=== PATIENT | female | born 1980 | race Caucasian/White ===

== ENCOUNTER 2016-09-16 16:42 | Emergency (ER) | payer MEDICAID, OTHER ==
[2016-09-16 16:57] VITALS: BP 131/81
--- NOTE | 2016-09-16 17:06 | UC ---
Hand/Wrist HPI - HPI Summary HPI Summary: pain in right wrist traveling from thumb up side of forearm---began after gardening a few days ago---hurts to move touch, difficult picking up things - History Of Current Complaint Chief Complaint: UCUpperExtremity Stated Complaint: RIGHT WRIST/HAND INJURY Time Seen by Provider: 09/16/16 16:57 Hx Obtained From: Patient Hx Last Menstrual Period: 09/14/16 ?: No Mechanism Of Injury: repeative use Onset/Duration: Sudden Onset, Lasting Days, Still Present Severity Initially: Moderate Severity Currently: Moderate Pain Intensity: 6 Pain Scale Used: 0-10 Numeric Character Of Pain: Aching, Throbbing Aggravating Factor(s): Movement, Lifting Alleviating: Nothing Associated Signs And Symptoms: Positive: Negative Related History: Dominant Hand Right - Allergies/Home Medications Allergies/Adverse Reactions: Allergies Allergy/AdvReac Type Severity Reaction Status Date / Time No Known Allergies Allergy Verified 09/16/16 16:57 Home Medications: Home Medications Lisdexamfetamine(NF) [Vyvanse(NF)] 40 mg PO DAILY 09/16/16 [History Confirmed ] Naltrexone (NF) 50 mg PO DAILY 09/16/16 [History Confirmed 09/16/16] lamoTRIgine TAB(*) [Lamictal TAB(*)] 75 mg PO BEDTIME 09/16/16 [History Confirmed 09/16/16] traZODone TAB* [Desyrel TAB*] 100 mg PO BEDTIME 09/16/16 [History Confirmed 06/28] PMH/Surg Hx/FS Hx/Imm Hx Previously Healthy: No Psychological History: Anxiety, Depression Other History Of: Negative For: Anticoagulant Therapy - Surgical History Surgical History: Yes Surgery Procedure, Year, and Place: Appendectomy, 2004, [facility] [place]. Tubal Ligation, 2007, [facility] [place]. Left Shoulder Rotator Cuff/Calcium Deposits/Bone Spurs, 2011, [facility] [place] - Family History Known Family History: Positive: None - Social History Occupation: Unemployed Lives: With Family Alcohol Use: Occasionally Substance Use Type: None Smoking Status (MU): Heavy Every Day Tobacco Smoker Type: Cigarettes Amount Used/How Often: 1/2 ppd Have You Smoked in the Last Year: Yes Household Exposure Type: Cigarettes Review of Systems Constitutional: Negative Skin: Negative Eyes: Negative ENT: Negative Respiratory: Negative Cardiovascular: Negative Gastrointestinal: Negative Genitourinary: Negative Motor: Negative Neurovascular: Negative Musculoskeletal: Arthralgia - right thumb and raial pain Neurological: Negative Psychological: Negative All Other Systems Reviewed And Are Negative: Yes Physical Exam Triage Information Reviewed: Yes Appearance: Well-Appearing, No Pain Distress, Well-Nourished Vital Signs: Initial Vital Signs Temp 99 F 09/16/16 16:53 Pulse 96 09/16/16 16:53 Resp 14 09/16/16 16:53 BP 131/81 09/16/16 16:53 Pulse Ox 98 09/16/16 16:53 Vital Signs Reviewed: Yes Eye Exam: Normal Eyes: Positive: Conjunctiva Clear ENT Exam: Normal ENT: Positive: Normal ENT inspection, Hearing grossly normal, Pharynx normal. Negative: Nasal congestion, Nasal drainage, Trismus, Muffled/hoarse voice Dental Exam: Normal Neck exam: Normal Neck: Positive: Supple, Nontender, No Lymphadenopathy Respiratory Exam: Normal Respiratory: Positive: Chest non-tender, No respiratory distress, No accessory muscle use Cardiovascular Exam: Normal Cardiovascular: Positive: RRR, Pulses Normal, Brisk Capillary Refill Musculoskeletal Exam: Normal Musculoskeletal: Positive: Strength Intact, ROM Intact, No Edema Neurological Exam: Normal Neurological: Positive: Alert, Muscle Tone Normal Psychological Exam: Normal Psychological: Positive: Normal Response To Family, Age Appropriate Behavior Skin Exam: Normal Hand/Wrist Course/Dx - Course Course Of Treatment: thumb spica, rice, ibuprofen, follow with ortho prn - Differential Dx/Diagnosis Differential Diagnosis/HQI/PQRI: Cellulitis, Contusion, Fracture, Sprain, Strain , Tendonitis Provider Diagnoses: Tendonitis right wrist Discharge - Discharge Plan Condition: Stable Disposition: HOME Prescriptions: Ibuprofen TAB* [Motrin TAB* 600 MG] 600 mg PO Q6H PRN #40 tab PRN Reason: pain Patient Education Materials: Ibuprofen (By mouth), Tendinitis (ED), RICE Therapy (ED) Referrals: Donis Lowry MD [Medical Doctor] - 1 Week
== END 2016-09-16 17:20 | disposition home or self-care (01) ==
LOC: UCCORT 16:42
DX: M77.9 Enthesopathy, unspecified (principal); F41.9 Anxiety disorder, unspecified; F32.9 Major depressive disorder, single episode, unspecified; F17.210 Nicotine dependence, cigarettes, uncomplicated
CPT/HCPCS: 99213; G0463

== ENCOUNTER 2018-08-02 11:08 | Emergency (ER) | payer OTHER ==
[2018-08-02] MEDS ORDERED: Ondansetron INJ* 2 MG/ML VIAL IV ONE (11:51)
[2018-08-02] MEDS ORDERED: Thiamine TAB* 100 MG TAB PO ONE (11:51)
[2018-08-02] MEDS ORDERED: NS 0.9% 1000 ML** 1,000 ML IV ONE (11:51)
[2018-08-02] MEDS ORDERED: Folic Acid TAB* 1 MG PO ONE (11:51)
[2018-08-02 12:13] LABS: ABS Lymphocytes 0.8 10^3/ul (1.0-4.8); ABS Monocytes 0.3 10^3/ul (0-0.8); ABS Neutrophils 3.4 10^3/ul (1.5-7.7); Eosinophil % 0.3 %; Hematocrit 35 % (35-47); Hemoglobin 12.1 g/dL (12.0-16.0); Mean Corpuscular HGB Conc 35 g/dL (31-36); Mean Corpuscular Hemoglobin 34 pg (27-31); Mean Corpuscular Volume 96 fL (80-97); Mean Platelet Volume 7.3 fL (7.4-10.4); Nucleated Red Blood Cells % 0.1; Platelet Count 158 10^3/uL (150-450); Red Cell Distribution Width 14 % (10-15); White Blood Count 4.6 10^3/uL (3.5-10.8)
[2018-08-02 12:16] LABS: Urine Appearance Cloudy; Urine Bilirubin Negative (Negative); Urine Blood Negative (Negative); Urine Color Yellow; Urine Glucose Negative (Negative); Urine Ketones Trace (Negative); Urine Nitrite Negative (Negative); Urine Protein Negative (Negative); Urine Urobilinogen Negative (Negative)
[2018-08-02 12:28] LABS: ALT 65 U/L (7-52); AST 65 U/L (13-39); Albumin 4.1 g/dL (3.2-5.2); Albumin/Globulin Ratio 1.5 (1-3); Alkaline Phosphatase 84 U/L (34-104); Anion Gap 12 mmol/L (2-11); BUN/Creatinine Ratio 8.5 (8-20); Blood Urea Nitrogen 6 mg/dL (6-24); CO2 Carbon Dioxide 23 mmol/L (22-32); Calcium 8.8 mg/dL (8.6-10.3); Chloride 104 mmol/L (101-111); EGFR African American 110.9 (>60); EGFR Non-African American 91.6 (>60); Globulin 2.8 g/dL (2-4); Glucose 80 mg/dL (70-100); Potassium 3.6 mmol/L (3.5-5.0); Sodium 139 mmol/L (135-145); Total Protein 6.9 g/dL (6.4-8.9)
[2018-08-02 12:39] LABS: Urine Benzodiazepine Screen None Detected (None Detect); Urine Opiates Screen None Detected (None Detect)
[2018-08-02 12:39] LABS: Acetaminophen < 15 mcg/mL; Alcohol 46 mg/dL (<10); Salicylate < 2.50 mg/dL (<30)
--- NOTE | 2018-08-02 12:50 | ED ---
Substance Abuse/Use - HPI Summary HPI Summary: This patient is a 38 year old F presenting to [facility] accompanied by friend with request for alcohol detox today after experiencing alcohol withdrawal symptoms. Pt reports her last drink was around 0200, and according to triage she drank about a pint of vodka. She reports that her hands cramped up, her arm was numb up to the elbow, her right foot was numb, and she experienced shakiness. Friend reported pt vomited throughout the night. Pt also reports she ingested cocaine last night. In triage it is reported that she smoked marijuana the morning of . Current everyday smoker. - History Of Current Complaint Chief Complaint: EDDetoxRequest Stated Complaint: REQUESTED DETOX PER PT Time Seen by Provider: 08/02/18 11:38 Hx Obtained From: Patient Hx Last Menstrual Period: 09/14/16 Onset/Duration of Drug/ETOH Abuse: Hours - Last alcoholic drink was at 0200. Ingestion History: Type/Name Of Drug - Alcohol, Cocaine, Marijuana Timing Of Abuse: Daily - Chronic ETOH Abuse, Intermittent - Cocaine, night of Marijuana, morning of 08/02/18 Severity Initially: Mild Severity Currently: Moderate Aggravating Factor(s): Other - withdrawal from EtOH Alleviating Factor(s): Nothing Associated Signs And Symptoms: Tremulous, Nausea, Vomiting, Other: - Positive: Numbness in arm up to elbows, right foot numbness Related Hx: Drug/Alcohol Last Used @ - Alcohol - 0200 on 08/02/18; Cocaine - night of 08/01/18, Marijuana - morning of 08/02/18 - Allergies/Home Medications Allergies/Adverse Reactions: Allergies Allergy/AdvReac Type Severity Reaction Status Date / Time No Known Allergies Allergy Verified 09/16/16 16:57 Home Medications: Home Medications NK [No Home Medications Reported] 08/02/18 [History Confirmed 08/02/18] PMH/Surg Hx/FS Hx/Imm Hx Endocrine/Hematology History: Denies: Hx Anticoagulant Therapy, Hx Diabetes, Hx Thyroid Disease Cardiovascular History: Denies: Hx Hypertension Respiratory History: Denies: Hx Asthma, Hx Chronic Obstructive Pulmonary Disease (COPD) GI History: Denies: Hx Ulcer Psychiatric History: Reports: Hx Substance Abuse - Surgical History Surgery Procedure, Year, and Place: Appendectomy, 2004, [facility]. Tubal Ligation, 2007, [facility]. Left Shoulder Rotator Cuff/Calcium Deposits/Bone Spurs, 2011, [facility] Infectious Disease History: No Infectious Disease History: Reports: Hx Shingles - 2008 Denies: Hx Hepatitis, Hx Human Immunodeficiency Virus (HIV), Traveled Outside the [place] in Last 30 Days - Family History Known Family History: Positive: Cardiac Disease, Hypertension - Social History Alcohol Use: Daily Substance Use Type: Reports: Cocaine, Marijuana Substance Use Comment - Amount & Last Used: cocaine - 08/01/2018, marijuana - Hx Tobacco Use: Yes Smoking Status (MU): Heavy Every Day Tobacco Smoker Type: Cigarettes Amount Used/How Often: 1/2 ppd Have You Smoked in the Last Year: Yes Review of Systems Positive: Other - Positive: Body shaking Positive: Vomiting, Nausea Positive: Numbness - arm, and right leg All Other Systems Reviewed And Are Negative: Yes Physical Exam - Summary Physical Exam Summary: VITAL SIGNS: Reviewed. GENERAL: Patient is a well-developed and nourished female who is lying comfortable in the stretcher. Patient is not in any acute respiratory distress. HEAD AND FACE: No signs of trauma. No ecchymosis, hematomas or skull depressions. No sinus tenderness. EYES: PERRLA, EOMI x 2, No injected conjunctiva, no nystagmus. EARS: Hearing grossly intact. Ear canals and tympanic membranes are within normal limits. MOUTH: Oropharynx within normal limits. NECK: Supple, trachea is midline, no adenopathy, no JVD, no carotid bruit, no c- spine tenderness, neck with full ROM. CHEST: Symmetric, no tenderness at palpation LUNGS: Clear to auscultation bilaterally. No wheezing or crackles. CVS: Regular rate and rhythm, S1 and S2 present, no murmurs or gallops appreciated. ABDOMEN: Soft, non-tender. No signs of distention. No rebound no guarding, and no masses palpated. Bowel sounds are normal. EXTREMITIES: FROM in all major joints, no edema, no cyanosis or clubbing. NEURO: Alert and oriented x 3. No acute neurological deficits. Speech is normal and follows commands. SKIN: Dry and warm. Triage Information Reviewed: Yes Vital Signs On Initial Exam: Initial Vitals Temp Pulse Resp BP Pulse Ox 98.9 F 99 18 163/94 97 08/02/18 11:08/02/18 11:08/02/18 11:09 08/02/18 11:09 08/02/18 11:09 Vital Signs Reviewed: Yes Diagnostics - Vital Signs Vital Signs Temp Pulse Resp BP Pulse Ox 08/02/18 11:30 93 97 08/02/18 11:28 91 153/97 97 08/02/18 11:09 98.9 F 99 18 163/94 97 - Laboratory Lab Results: Lab Results 08/02/18 08/02/18 08/02/18 Range/Units 11:59 11:59 12:00 WBC 4.6 (3.5-10.8) 10^3/uL RBC 3.60 L (3.70-4.87) 10^6 /uL Hgb 12.1 (12.0-16.0) g/dL Hct 35 (35-47) % MCV 96 (80-97) fL MCH 34 H (27-31) pg MCHC 35 (31-36) g/dL RDW 14 (10-15) % Plt Count 158 (150-450) 10^3/uL MPV 7.3 L (7.4-10.4) fL Neut % (Auto) 74.7 % Lymph % (Auto) 17.0 % [place] % (Auto) 7.5 % Eos % (Auto) 0.3 % Baso % (Auto) 0.5 % Absolute Neuts (auto) 3.4 (1.5-7.7) 10^3/ul Absolute Lymphs (auto) 0.8 L (1.0-4.8) 10^3/ul Absolute Monos (auto) 0.3 (0-0.8) 10^3/ul Absolute Eos (auto) 0.0 (0-0.6) 10^3/ul Absolute Basos (auto) 0.0 (0-0.2) 10^3/ul Absolute Nucleated RBC 0.0 10^3/ul Nucleated RBC % 0.1 Sodium 139 (135-145) mmol/L Potassium 3.6 (3.5-5.0) mmol/L Chloride 104 (101-111) mmol/L Carbon Dioxide 23 (22-32) mmol/L Anion Gap 12 H (2-11) mmol/L BUN 6 (6-24) mg/dL Creatinine 0.71 (0.51-0.95) mg/dL Est GFR ( Amer) 110.9 (>60) Est GFR (Non-Af Amer) 91.6 (>60) BUN/Creatinine Ratio 8.5 (8-20) Glucose 80 (70-100) mg/dL Calcium 8.8 (8.6-10.3) mg/dL Total Bilirubin 0.80 (0.2-1.0) mg/dL AST 65 H (13-39) U/L ALT 65 H (7-52) U/L Alkaline Phosphatase 84 (34-104) U/L Total Protein 6.9 (6.4-8.9) g/dL Albumin 4.1 (3.2-5.2) g/dL Globulin 2.8 (2-4) g/dL Albumin/Globulin Ratio 1.5 (1-3) TSH Pending Urine Color Yellow Urine Appearance Cloudy Urine pH 7.0 (5-9) Ur Specific [place] 1.020 (1.010-1.030) Urine Protein Negative (Negative) Urine Ketones Trace A (Negative) Urine Blood Negative (Negative) Urine Nitrate Negative (Negative) Urine Bilirubin Negative (Negative) Urine Urobilinogen Negative (Negative) Ur Leukocyte Esterase Negative (Negative) Urine Glucose Negative (Negative) Salicylates < 2.50 (<30) mg/dL Urine Opiates Screen (None Detect) Acetaminophen < 15 mcg/mL Ur Barbiturates Screen (None Detect) Ur Phencyclidine Scrn (None Detect) Ur Amphetamines Screen (None Detect) U Benzodiazepines Scrn (None Detect) Urine Cocaine Screen (None Detect) U Cannabinoids Screen (None Detect) Serum Alcohol 46 H (<10) mg/dL 08/02/18 Range/Units 12:05 WBC (3.5-10.8) 10^3/uL RBC (3.70-4.87) 10^6 /uL Hgb (12.0-16.0) g/dL Hct (35-47) % MCV (80-97) fL MCH (27-31) pg MCHC (31-36) g/dL RDW (10-15) % Plt Count (150-450) 10^3/uL MPV (7.4-10.4) fL Neut % (Auto) % Lymph % (Auto) % [place] % (Auto) % Eos % (Auto) % Baso % (Auto) % Absolute Neuts (auto) (1.5-7.7) 10^3/ul Absolute Lymphs (auto) (1.0-4.8) 10^3/ul Absolute Monos (auto) (0-0.8) 10^3/ul Absolute Eos (auto) (0-0.6) 10^3/ul Absolute Basos (auto) (0-0.2) 10^3/ul Absolute Nucleated RBC 10^3/ul Nucleated RBC % Sodium (135-145) mmol/L Potassium (3.5-5.0) mmol/L Chloride (101-111) mmol/L Carbon Dioxide (22-32) mmol/L Anion Gap (2-11) mmol/L BUN (6-24) mg/dL Creatinine (0.51-0.95) mg/dL Est GFR ( Amer) (>60) Est GFR (Non-Af Amer) (>60) BUN/Creatinine Ratio (8-20) Glucose (70-100) mg/dL Calcium (8.6-10.3) mg/dL Total Bilirubin (0.2-1.0) mg/dL AST (13-39) U/L ALT (7-52) U/L Alkaline Phosphatase (34-104) U/L Total Protein (6.4-8.9) g/dL Albumin (3.2-5.2) g/dL Globulin (2-4) g/dL Albumin/Globulin Ratio (1-3) TSH Urine Color Urine Appearance Urine pH (5-9) Ur Specific [place] (1.010-1.030) Urine Protein (Negative) Urine Ketones (Negative) Urine Blood (Negative) Urine Nitrate (Negative) Urine Bilirubin (Negative) Urine Urobilinogen (Negative) Ur Leukocyte Esterase (Negative) Urine Glucose (Negative) Salicylates (<30) mg/dL Urine Opiates Screen None detected (None Detect) Acetaminophen mcg/mL Ur Barbiturates Screen None detected (None Detect) Ur Phencyclidine Scrn None detected (None Detect) Ur Amphetamines Screen None detected (None Detect) U Benzodiazepines Scrn None detected (None Detect) Urine Cocaine Screen Presumptive positive A (None Detect) U Cannabinoids Screen Presumptive positive A (None Detect) Serum Alcohol (<10) mg/dL Result Diagrams: 08/02/18 11:59 08/02/18 11:59 Lab Statement: Any lab studies that have been ordered have been reviewed, and results considered in the medical decision making process. Re-Evaluation - Re-Evaluation First Eval Re-Evaluation Time: 15:40 Comment: Patient is agreeable with discharge home with follow up with the detox referrals provided by the renal social worker. Course/Dx - Course Assessment/Plan: This patient is a 38 year old F presenting to [facility] accompanied by friend with request for alcohol detox today after experiencing alcohol withdrawal symptoms. Pt reports her last drink was around 0200, and according to triage she drank about a pint of vodka. She reports that her hands cramped up, her arm was numb up to the elbow, her right foot was numb, and she experienced shakiness. Friend reported pt vomited throughout the night. Pt also reports she ingested cocaine last night. In triage it is reported that she smoked marijuana the morning of 08/02/18. Current every day smoker. Blood test results without any significant abnormality except for anion gap of 12, AST 65, AST 65, serum alcohol is 46, urinalysis is negative for UTI. Urine toxicology positive for cannabinoids and cocaine. In the ED course the patient was given IV fluids for dehydration and Zofran for nausea and vomiting. She was given thiamine and folic acid since the patient is a chronic alcoholic. The patient s vital signs are stable therefore it is not believed that the patient is withdrawing at this time. She requested a renal social worker consult. At this point the patient will be discharged home with an outpatient detox programs referrals. ax survey worker referred the patient to the [facility] detox programs. - Diagnoses Provider Diagnoses: Alcoholism /alcohol abuse, Polysubstance abuse - Physician Notifications Discussed Care Of Patient With: Compressor Stations Superintendent Time Discussed With Above Provider: 13:31 Instructed by Provider To: Other - Discussed patient care with renal social worker, renal social worker will come and speak to pt. 15:33 - ax survey worker states she will give pt two referrals to facilities in [facility], and pt will need to follow up on 08/05/18. ax survey worker will call pt later today. Discharge - Sign-Out/Discharge Documenting (check all that apply): Patient Departure - Patient will be discharged Patient Received Moderate/Deep Sedation with Procedure: No - Discharge Plan Condition: Stable Disposition: HOME Patient Education Materials: Polysubstance Abuse (ED), Alcohol Use Disorder (ED ) Referrals: [facility] [Other] (Please Follow up with [facility] in [place] for a Detox bed OR [place] at [phone] OR reach out to the [place] [facility] ([facility]) at [phone]) Katerine Hughes MD [Primary Care Provider] - 3 Days Additional Instructions: Follow up with your primary care provider within 3 days. Follow up with referrals given by renal social worker. Return to the ED for any worsening or new symptoms. - Billing Disposition and Condition Condition: STABLE Disposition: Home - Attestation Statements Document Initiated by Sharmila: Yes Documenting Scribe: Shandra Bueno Provider For Whom Sharmila is Documenting (Include Credential): Dr. Antonio Sidhu MD Scribe Attestation: Shandra Henriquez scribed for Dr. Antonio Sidhu MD on 08/02/18 at 1550. Scribe Documentation Reviewed: Yes Provider Attestation: The documentation as recorded by the Shandra murray accurately reflects the service I personally performed and the decisions made by me, Dr. Antonio Sidhu MD Status of Scribe Document: Ready
[2018-08-02 12:54] LABS: TSH (Thyroid Stimulating Horm) 1.14 mcIU/mL (0.34-5.60)
[2018-08-02 16:09] VITALS: BP 137/79
== END 2018-08-02 16:00 | disposition home or self-care (01) ==
LOC: ED 11:08
DX: F17.210 Nicotine dependence, cigarettes, uncomplicated (principal); F10.20 Alcohol dependence, uncomplicated; F19.10 Other psychoactive substance abuse, uncomplicated
CPT/HCPCS: 36415; 80053; 80307; 80320; 80329; 81003; 84443; 85025; 96361; 96374; 99283; A9270-GY; G0480; J2405